=== PATIENT | male | born 1965 | race Native Hawaiian/Other Pacific Islander ===

== ENCOUNTER 2016-11-01 08:01 | Day surgery (SDC) | payer BC ==
[~2016-11-01] VITALS: Ht 30.5 cm; Wt 0.5 kg
[~2016-11-01 08:01] MED LIST: CARV12.5 PO; ECOTRIN REGULA325 MG OR; MEDROL DOSEPAK4 MG PO; METHYLPR SS125 MG IJ; PLAVIX75 MG PO; SIMV40TA57; SIMV40TA57 PO; TRAM50TA PO
[2016-11-01 09:02] LABS: PLATELET COUNT 160 K/uL (142-355)
[2016-11-01 09:03] LABS: POTASSIUM 4.2 mmol/L (3.6-5.2); SODIUM 137 mmol/L (136-145)
[2016-11-01 09:21] LABS: PARTIAL THROMBOPLASTIN TIME 23.3 SECONDS (24.5-33.6)
== END 2016-11-01 16:00 | disposition home or self-care (01) ==
LOC: LABW 08:01 → OR 08:01
PROVIDERS: Student in an Organized Health Care Education/Training Program
PROC: 0YU50JZ Supplement Right Inguinal Region with Synthetic Substitute, Open Approach (ICD-10-PCS; principal; 2016-11-01)
PROC: 0WBF0ZZ Excision of Abdominal Wall, Open Approach (ICD-10-PCS; 2016-11-01)
DX: K40.90 Unilateral inguinal hernia, without obstruction or gangrene, not specified as recurrent (principal); D17.1 Benign lipomatous neoplasm of skin and subcutaneous tissue of trunk
CPT/HCPCS: 36415; 80048; 85027; 85610; 85730; C1729; C1781; J2250; J2704; J3010; J3490

== ENCOUNTER 2016-12-22 13:47 | Outpatient (CLI) | payer BC | END 2016-12-22 15:00 | disposition home or self-care (01) | LOC: US 13:47 | DX: M79.606 Pain in leg, unspecified (principal); Z98.890 Other specified postprocedural states ==

== ENCOUNTER 2016-12-30 08:00 | Outpatient (CLI) | payer BC | END 2016-12-30 19:02 | disposition home or self-care (01) | LOC: CT 08:00 | DX: K40.90 Unilateral inguinal hernia, without obstruction or gangrene, not specified as recurrent (principal) | CPT/HCPCS: 36415; 82565; 84520; Q9963 ==

== ENCOUNTER 2017-02-14 08:00 | Day surgery (SDC) | payer BC ==
[~2017-02-14] VITALS: Ht 30.5 cm; Wt 0.5 kg
== END 2017-02-14 12:46 | disposition home or self-care (01) ==
LOC: OR 08:00
PROC: 0DBL8ZZ Excision of Transverse Colon, Via Natural or Artificial Opening Endoscopic (ICD-10-PCS; principal; 2017-02-14)
PROC: 0DBM8ZZ Excision of Descending Colon, Via Natural or Artificial Opening Endoscopic (ICD-10-PCS; 2017-02-14)
PROC: 0DBK8ZZ Excision of Ascending Colon, Via Natural or Artificial Opening Endoscopic (ICD-10-PCS; 2017-02-14)
DX: K57.30 Diverticulosis of large intestine without perforation or abscess without bleeding (principal); K64.8 Other hemorrhoids; D12.2 Benign neoplasm of ascending colon; D12.4 Benign neoplasm of descending colon; D12.3 Benign neoplasm of transverse colon; Z12.11 Encounter for screening for malignant neoplasm of colon
CPT/HCPCS: J2001; J2250; J2704; J3010

== ENCOUNTER 2017-03-03 09:42 | Outpatient (CLI) | payer BC ==
[2017-03-03 10:47] LABS: PLATELET COUNT 184 K/uL (142-355)
[2017-03-03 10:55] LABS: POTASSIUM 4.6 mmol/L (3.6-5.2); SODIUM 137 mmol/L (136-145)
== END 2017-03-03 19:13 | disposition home or self-care (01) ==
LOC: LABW 09:42
PROVIDERS: Family Medicine
DX: M54.2 Cervicalgia (principal); M25.512 Pain in left shoulder; Z91.89 Other specified personal risk factors, not elsewhere classified; R73.9 Hyperglycemia, unspecified; H53.8 Other visual disturbances
CPT/HCPCS: 36415; 80053; 83036; 85027

== ENCOUNTER 2017-06-13 09:36 | Outpatient (CLI) | payer BC ==
[2017-06-13 10:53] LABS: POTASSIUM 3.9 mmol/L (3.6-5.2); SODIUM 134 mmol/L (136-145)
[2017-06-13 10:58] LABS: PLATELET COUNT 153 K/uL (142-355)
[2017-06-13 10:59] LABS: PARTIAL THROMBOPLASTIN TIME 24.9 SECONDS (24.5-33.6)
== END 2017-06-13 11:00 | disposition home or self-care (01) ==
LOC: LABW 09:36
PROVIDERS: Orthopaedic Surgery
DX: Z01.818 Encounter for other preprocedural examination (principal); I10 Essential (primary) hypertension; E78.00 Pure hypercholesterolemia, unspecified
CPT/HCPCS: 36415; 80048; 81000; 82040; 84134; 85027; 85610; 85730; 87070

== ENCOUNTER 2017-07-06 11:26 | Outpatient (CLI) | payer BC ==
[2017-07-06 11:51] LABS: PLATELET COUNT 169 K/uL (142-355)
[2017-07-06 12:04] LABS: PARTIAL THROMBOPLASTIN TIME 24.3 SECONDS (24.5-33.6)
[2017-07-06 12:14] LABS: SODIUM 137 mmol/L (136-145)
== END 2017-07-06 12:30 | disposition home or self-care (01) ==
LOC: LABW 11:26
PROVIDERS: Orthopaedic Surgery
DX: Z01.818 Encounter for other preprocedural examination (principal); I10 Essential (primary) hypertension; E78.00 Pure hypercholesterolemia, unspecified; R79.1 Abnormal coagulation profile
CPT/HCPCS: 36415; 80048; 81000; 82040; 84134; 85027; 85610; 85730; 87070

== ENCOUNTER 2018-02-26 11:46 | Outpatient (CLI) | payer BC ==
[2018-02-26 12:22] LABS: PLATELET COUNT 152 K/uL (142-355)
[2018-02-26 12:56] LABS: POTASSIUM 3.6 mmol/L (3.6-5.2)
== END 2018-02-26 20:31 | disposition home or self-care (01) ==
LOC: LABW 11:46 → CT 12:00 → LABW 20:31
PROVIDERS: Family Medicine
DX: R31.0 Gross hematuria (principal)
CPT/HCPCS: 36415; 80053; 81000; 84153; 85027; 87088

== ENCOUNTER 2018-03-07 08:45 | Outpatient (CLI) | payer BC ==
[2018-03-07 09:15] VITALS: BP 115/75; TEMP 97.9
[2018-03-07 10:15] VITALS: BP 156/82
== END 2018-03-07 22:10 | disposition home or self-care (01) ==
LOC: INF 08:45
DX: E86.0 Dehydration (principal)
CPT/HCPCS: 96361; 96365; 96366; 96372; J1885; J1956

== ENCOUNTER 2018-03-08 08:49 | Outpatient (CLI) | payer BC ==
[2018-03-08 09:47] VITALS: BP 122/75; TEMP 98.1
[2018-03-08 09:49] VITALS: BP 145/94
== END 2018-03-08 19:11 | disposition home or self-care (01) ==
LOC: INF 08:49
DX: N20.0 Calculus of kidney (principal); E86.0 Dehydration
CPT/HCPCS: 96361; 96365; 96366; J1956

== ENCOUNTER 2018-03-22 10:09 | Emergency (ER) | payer BC ==
[~2018-03-22] VITALS: Ht 185.4 cm; Wt 102.1 kg
[2018-03-22 10:15] VITALS: TEMP 97
[2018-03-22 10:45] LABS: PLATELET COUNT 190 K/uL (142-355)
[2018-03-22 11:05] LABS: POTASSIUM 4.2 mmol/L (3.6-5.2); SODIUM 140 mmol/L (136-145)
[2018-03-22 12:05] VITALS: BP 123/75
== END 2018-03-22 12:05 | disposition home or self-care (01) ==
LOC: ED 10:09
DX: G45.9 Transient cerebral ischemic attack, unspecified (principal)
CPT/HCPCS: 36415; 80053; 81000; 82550; 82553; 84484; 85027; 93005; 99283

== ENCOUNTER → 2018-11-19 | Outpatient (CLI) | payer OTHER ==
[2018-11-19 11:33] LABS: PLATELET COUNT 170 K/uL (142-355)
[2018-11-19 11:50] LABS: POTASSIUM 3.7 mmol/L (3.6-5.2)
== END ==
LOC: LABW 11:10
PROVIDERS: Family Medicine
DX: I10 Essential (primary) hypertension (principal); K21.9 Gastro-esophageal reflux disease without esophagitis; E11.9 Type 2 diabetes mellitus without complications; E55.9 Vitamin D deficiency, unspecified; M25.519 Pain in unspecified shoulder
CPT/HCPCS: 36415; 80053; 80061; 81000; 82306; 83036; 83735; 84439; 84443; 84550; 85027

== ENCOUNTER 2019-04-02 09:55 | Outpatient (CLI) | payer OTHER | END 2019-04-02 23:59 | disposition home or self-care (01) | LOC: LABW 09:55 | DX: R68.82 Decreased libido (principal) | CPT/HCPCS: 36415; 84402; 84403 ==

== ENCOUNTER 2019-05-16 09:41 | Outpatient (CLI) | payer OTHER | END 2019-05-16 20:33 | disposition home or self-care (01) | LOC: US 09:41 | DX: I65.29 Occlusion and stenosis of unspecified carotid artery (principal) ==

== ENCOUNTER 2019-09-10 21:06 | Outpatient (CLI) | payer OTHER | END 2019-09-10 21:16 | disposition short-term general hospital (02) | LOC: AMB 21:06 | DX: I46.9 Cardiac arrest, cause unspecified (principal) | CPT/HCPCS: A0425; A0433 ==

== ENCOUNTER 2019-09-10 21:16 | Emergency (ER) | payer OTHER ==
[~2019-09-10] VITALS: Ht 185.4 cm; Wt 102.1 kg
[2019-09-10 22:16] LABS: PLATELET COUNT 150 K/uL (142-355)
[2019-09-10 22:20] LABS: POTASSIUM 4.7 mmol/L (3.6-5.2); SODIUM 146 mmol/L (136-145)
[2019-09-10 22:35] VITALS: BP 0/0
== END 2019-09-10 22:35 | disposition expired ==
LOC: ED 21:16
PROVIDERS: Student in an Organized Health Care Education/Training Program
PROC: 5A12012 Performance of Cardiac Output, Single, Manual (ICD-10-PCS; principal; 2019-09-10)
DX: I46.9 Cardiac arrest, cause unspecified (principal)
CPT/HCPCS: 80053; 82550; 82553; 84484; 85027; 92950; 96360; 96375; 99285; J0171; J7120